=== PATIENT | male | born 1965 | race Caucasian/White ===

== ENCOUNTER → 2023-01-31 13:33 | Outpatient (BNVA) | payer BC, SELFPAY | PROVIDERS: Referring Provider Family Medicine; Visit Provider Orthopaedic Surgery | DX: M47.816 Spondylosis without myelopathy or radiculopathy, lumbar region (principal); M51.36 Other intervertebral disc degeneration, lumbar region | CPT/HCPCS: 72100 ==

== ENCOUNTER 2023-06-05 05:42 | Day surgery (SDC) | payer BC, SELFPAY ==
[2023-06-05] VITALS (8 sets, daily range): BP systolic 114–182; BP diastolic 68–118; PULSE 52–62; RESP 16–18; TEMP 36.1–37.2; O2SAT 94–99; BMI 51.3
--- NOTE | 2023-06-05 | XR_ITS ---
WS: [id number] C-ARM RADIOGRAPHS LUMBAR SPINE; 2 IMAGES HISTORY: decompression, OR pic COMPARISON: None available. Intraoperative imaging during spine decompression. Decompression projects over the L4-5 level. IMPRESSION: Intraoperative imaging during spine decompression surgery.
[2023-06-05] MEDS: sodium chloride 0.9% 1,000 ML 30 ML IV (06:19)
[2023-06-05 06:39] LABS: Basophils # 0.1 10^3/uL (0.0-0.1); Basophils % 0.8 %; Eosinophils # 0.2 10^3/uL (0.0-0.8); Eosinophils % 1.7 %; Hematocrit 48.7 % (37-53); Lymphocytes # 2.2 10^3/uL (0.8-4.8); Mean Corpuscular HGB Conc 33.3 g/dL (30-55); Mean Corpuscular Hemoglobin 31.3 pg (27-33); Mean Corpuscular Volume 94.2 fl (82-101); Mean Platelet Volume 9.6 fL (7.4-10.4); Monocytes # 0.6 10^3/uL (0.2-0.9); Neutrophils # 6.01 10^3/uL (1.8-7.7); Neutrophils % 66.2 %; Nucleated Red Blood Cells % 0 %; Platelet Count 220 10^3/cmm (157-399); Red Blood Count 5.17 10^6/uL (3.85-5.65); Red Cell Distribution Width 12.6 % (12.1-15.1); White Blood Count 9.08 10^3/uL (3.29-11.43)
[2023-06-05 06:57] LABS: Anion Gap 14.4 (5-19); Blood Urea Nitrogen 20 mg/dL (6-20); Calcium 9.2 mg/dL (8.5-10.5); Carbon Dioxide 30 mmol/L (22-29); Chloride 99 mmol/L (98-107); Glomerular Filtration Rate 68.8 mL/min (90-130); Glucose 139 mg/dL (65-115); Osmolality Calculated 295 mOsm/kg (285-295); Potassium 3.4 mmol/L (3.5-5.1); Sodium 140 mmol/L (136-145)
[2023-06-05] MEDS: ceFAZolin 2,000 MG in sodium chloride 0.9% (plus) 50 ML 100 MG IV (07:11)
[2023-06-05] MEDS: ceFAZolin 1,000 mg SDV 1000 MG IVP (07:33)
[2023-06-05] MEDS: lidocaine-epi 1% 20 mL INJ INJECTION (07:40)
[2023-06-05] MEDS: thrombin 5,000 unit SDV 5000 UNIT XX (07:59)
--- NOTE | 2023-06-05 08:42 | PM.OP ---
Operative Report Date of procedure: June 05, 2023 Pre-op diagnosis: Lumbar stenosis with neurogenic claudication Post-op diagnosis: same Procedure done: L4-5 laminectomy with partial facetectomy Surgeon: Jorge Gagnon DO Estimated blood loss (mL): 20 Procedure: L4-5 laminectomy with partial facetectomy Patient is brought to the operative suite. After undergoing anesthesia they are placed in the prone position. All areas of impingement are well padded. Patient is then prepped and draped in the normal sterile fashion. A skin incision is made over the L4-5 level. This is confirmed under c-arm guidance. A series of dilators are passed and the tubular retractor is docked on the L4 lamina. A bovie is used to clear the soft tissue off the lamina and the L 4/5 facet joint. A high speed [place] is then used to perform the laminectomy and take down the medial aspect of the L 4/5 facet joint. A kerrison rongeure was then used to take down the remaining lamina and smooth the edge of the laminectomy up to the point where the ligamentum flavum attaches. Attention was then brought to the medial aspect of the facet joint. The remaining medial aspect of the superior and inferior aspect of the facet joint were taken down with the kerrison from the pedicle of L4 to L 5. The facet joint had significant hypertrophy. Attention was then brought to the Ligamentum Flavum. The ligament was taken down from the lamina of L4 to L5 and out medially to the remaining facet joint. The ligament was thick. The dura was then exposed. The dura was in good repair. The L4 nerve was then traced with a curette out the L4/5 foramen and found to be adequately decompressed. The L5 nerve was traced with a curette around the L5 pedicle. The lateral recess was opened with a kerrison helping to further decompress the L5 nerve. Tube was tilted to take down part of the lamina on the contralateral side cannot reach all the way over to the facet joint however did take down the ligament as well as ensured the nerves were able to pass through the foramen and around the pedicle freely. Wound is then irrigated copiously with saline and surgiflo is used to stop any bleeding. The tubular retractor is removed and the wound is closed with vicryl and monocryl suture. Glue is then used to protect the wound. A sterile dressing is then placed. Patient was then placed in the supine position and transferred to the PACU in stable condition.
[2023-06-05] MEDS: ondansetron 4 MG Tablet PO (09:27)
[2023-06-05] MEDS: HYDROcodone-acetaminophen 5-325 mg Tablet 1 TAB PO (09:27)
--- NOTE | 2023-06-05 10:10 | ANE.PACU2 ---
Inpatient post-anesthesia follow up: Airway intact: Yes Vital signs: Temperature 97 F Pulse Rate 58 Respiratory Rate 18 Blood Pressure 114/69 Pulse Oximetry 94 Oxygen Delivery Me thod Room Air Oxygen Flow Rate 6 Fraction of Inspir ed Oxygen Hydration adequate: Yes Nausea and vomiting: No Pain level: 1
--- NOTE | 2023-06-06 12:48 | W.PM.OPSFHP ---
Same Day Surgery H&P Indication for Procedure/HPI DATE OF PROCEDURE: June 05, 2023 CHIEF COMPLAINT/INDICATIONFOR SURGICAL PROCEDURE: Leg and back pain PREOP DIAGNOSIS: Lumbar stenosis with neurogenic claudication PLANNED PROCEDURE: Operation Date: 06/05/23 07:00 Proposed Procedures p Bilateral Lumbar Decompression(standing on left)(Bilateral) - Jorge Gagnon DO Medications/Allergies* Home Medications Medication Instructions Recorded Confirmed Type carbamazepine 200 mg 400 mg PO DAILY 05/23/23 05/31/23 History capsule,extended release [id number] clonidine HCl 0.2 mg tablet 0.4 mg PO TID 05/23/23 06/05/23 History clopidogrel 75 mg tablet 75 mg PO DAILY 05/23/23 05/31/23 History lisinopril 40 mg tablet 40 mg PO DAILY 05/23/23 05/31/23 History meloxicam 7.5 mg tablet 7.5 mg PO DAILY 05/23/23 05/31/23 History omeprazole 20 mg capsule,delayed 20 mg PO DAILY 05/23/23 05/31/23 History release potassium chloride 20 mEq 20 meq PO DAILY 05/23/23 05/31/23 History tablet,extended release(part/cryst) (Klor-Con M) rivaroxaban 20 mg tablet (Xarelto) 20 mg PO DAILY 05/23/23 05/31/23 History ropinirole 0.25 mg tablet 0.5 mg PO BEDTIME 05/23/23 05/31/23 History sotalol 80 mg tablet 80 mg PO BID 05/23/23 05/31/23 History verapamil 240 mg tablet,extended 240 mg PO BID 05/23/23 05/31/23 History release atorvastatin 80 mg tablet 80 mg PO DAILY 05/31/23 05/31/23 History Allergies/Adverse Reactions Allergy/AdvReac Type Severity Reaction Status Date / Time codeine Allergy ALGY-Difficulty Verified 05/31/23 13:38 Breathing Pertinent Exam Findings alert and oriented x 3 Recommendations Surgery/Procedure today Coding Level of Care Code Acute Code for Chg Fwd
== END 2023-06-05 10:13 | disposition home or self-care (01) ==
PROVIDERS: Anesthesiology; Visit Provider Orthopaedic Surgery
PROC: (CPT 63005; principal; 2023-06-05 07:00)
DX: M48.062 Spinal stenosis, lumbar region with neurogenic claudication (principal)
CPT/HCPCS: 63047; 36415; 72020; 76000; 80048; 85025; J0330; J0690; J1100; J2250; J2405; J2704; J3010; J3490; J7030; Q0162

== ENCOUNTER → 2023-06-23 10:26 | Outpatient (BNVA) | payer BC, SELFPAY | PROVIDERS: Visit Provider Orthopaedic Surgery | DX: M48.062 Spinal stenosis, lumbar region with neurogenic claudication (principal); Z47.89 Encounter for other orthopedic aftercare; Z98.890 Other specified postprocedural states | CPT/HCPCS: 72100 ==